=== PATIENT | male | born 1975 | race Caucasian/White ===

== ENCOUNTER → 2024-08-30 10:08 | Outpatient (REF) | payer OTHER, SELFPAY | LOC: DHSLP 10:08 | PROVIDERS: ATTENDING PHYSICIAN Internal Medicine Critical Care Medicine; FAMILY PHYSICIAN Physician Assistant Medical | DX: G47.19 Other hypersomnia (principal); R06.83 Snoring | CPT/HCPCS: 95800 ==

== ENCOUNTER → 2024-12-30 06:34 | Outpatient (REF) | payer OTHER, SELFPAY ==
[2024-12-30 12:44] LABS: COVID-19 Antigen Positive (Negative)
== END | disposition home or self-care (01) ==
LOC: REG 06:34
PROVIDERS: ATTENDING PHYSICIAN Internal Medicine Gastroenterology
DX: U07.1 COVID-19 (principal); Z12.11 Encounter for screening for malignant neoplasm of colon; Z53.09 Procedure and treatment not carried out because of other contraindication
CPT/HCPCS: 87811; 87502; G0378